=== PATIENT | male | born 1985 | race Two or more races ===

== ENCOUNTER 2024-11-02 15:30 | Outpatient (RCR) | payer BC, SELFPAY ==
--- NOTE | 2024-10-09 15:15 | PT.OIERPT ---
PT OP Initial Eval Patient Information Outpatient Physical Therapy Treatment Date: 10/09/24 Visit Reasons: back pain Medical Diagnosis: M54.50 Treatment Dx #1: Back Pain Smoking Status Smoking Status: Current some day smoker (yes) Cessation Counseling Provided: TIKA was advised that quitting smoking is the single most important factor to protect the health of themselves and their family. Discussed the benefits of quitting smoking with patient. Encouraged patient to quit smoking and provided Cessation assistance materials and resources. Tobacco Use: Cigarette Years smoked: 10 Are you interested in quitting?: No Would you like additional Smoking Cessation Counseling?: No Initial Assessment Subjective: Pt is a 39 y/o male reports of chronic back pain ~ 1.5 years ago after lifting injury. Pt's most recent CT scan found 7 mm L4-S1 segments. No MRI has been done thus far. Pt has limitation with sleeping, sitting, standing, chores, self care, cooking, cleaning, and work duties. Objective: L/S AROM: all motions are WFL with pain into end range flexion and extension Hip PROM: all motions are WFL except IR bilaterally Muscle Length: Hs tightness Special Test (-) SLR (-) slumpt test Assessment: Pt demonstrate back pain with mobility deficits leading to difficulty with ADLs. Pt will attempt physical therapy if pain persist Pt will be refer back to provider for further consultation. Short Term and Nursing Home Goals 1) Increase L/S AROM WNL in 6 wks to be able to perform chores 2) Decrease back pain to 2/10 in 6 wks to be able to sit and stand more than 30 mins 3) Increase core strength WFL in 6 wks to be able to perform work duties 4) Increase hip MMTs grossly 4-/5 in 6 wks to be able to walk more than 30 mins 5) Indep with HEP Treatment Plan 1) Manual Therapy 2) Therapeutic Activities 3) Therapeutic Exercises 4) Modalities (ice, heat, traction) Frequency and Duration: 2 x wk for 6 wks Certification Dates: 10/09/24 to 01/09/25 Procedure Charges OP PT Eval Mod Complex 30 minutes: Yes
--- NOTE | 2024-10-16 15:32 | PT.ODAYNRPT ---
PT Outpatient Daily Note OP Daily Note Outpatient Physical Therapy Treatment Date: 10/16/24 Visit Reasons: back pain Subjective: Pt's back is okay. No pain down the leg today Objective: Please see flow chart for list of ther ex performed Assessment: hip fatigue with tick tock exercise require standing rest breaks. Plan: Continue with PT Length of Time (minutes) of Treatment: 30 Minutes Procedure Charges Therapeutic Exercise 30 minutes: Yes
--- NOTE | 2024-10-19 16:47 | PT.ODAYNRPT ---
PT Outpatient Daily Note OP Daily Note Outpatient Physical Therapy Treatment Date: 10/19/24 Visit Reasons: back pain Subjective: Pt reported muscle soreness post last PT visit. Objective: Please see flow sheet for ther ex list. Assessment: Pt able to replicate repeated lumbar extension with good technique, encouraged to continue for HEP. Plan: Continue with POC. Length of Time (minutes) of Treatment: 30 Minutes Procedure Charges Therapeutic Exercise 30 minutes: Yes
--- NOTE | 2024-10-22 16:11 | PT.ODAYNRPT ---
PT Outpatient Daily Note OP Daily Note Outpatient Physical Therapy Treatment Date: 10/22/24 Visit Reasons: back pain Subjective: Pt reports LBP has been worse lately, tried HEP exercises once but made his back sore. Objective: Please see flow sheet for ther ex list. Assessment: Pt demonstrates poor activity tolerance due to pain response. Plan: Continue with POc. Length of Time (minutes) of Treatment: 30 Minutes Procedure Charges Therapeutic Exercise 30 minutes: Yes
--- NOTE | 2024-11-02 15:57 | PT.ODAYNRPT ---
PT Outpatient Daily Note OP Daily Note Outpatient Physical Therapy Treatment Date: 11/02/24 Visit Reasons: back pain Subjective: Pt's back is about the same and continues to have pain down the leg. Pt mentioned after sitting for awhile her back is really stiff. Objective: Please see flow chart for list of ther ex performed Assessment: no change in overall symptoms post PT session. Progress most of patient exercises to sitting or standing with good tolerance Plan: Continue with PT Length of Time (minutes) of Treatment: 30 Minutes Procedure Charges Therapeutic Exercise 30 minutes: Yes
== END 2024-11-02 23:59 | disposition home or self-care (01) ==
LOC: CPTX 15:30
DX: M54.50 Low back pain, unspecified (principal); G89.29 Other chronic pain; Z71.6 Tobacco abuse counseling; F17.210 Nicotine dependence, cigarettes, uncomplicated
CPT/HCPCS: 97110; 97162

== ENCOUNTER 2024-11-17 15:00 | Outpatient (RCR) | payer BC, SELFPAY ==
--- NOTE | 2024-11-10 15:27 | PT.ODAYNRPT ---
PT Outpatient Daily Note OP Daily Note Outpatient Physical Therapy Treatment Date: 11/10/24 Visit Reasons: BACK PAIN Subjective: Pt's back pain is about the same. Despite Pt's been resting from work for ~ 3 weeks; he continues to have pain. Pt mentioned pain pills are not even touching the pain. Objective: Please see flow chart for list of ther ex performed Assessment: no change in pain post PT session. Cues given to patient to pelvic tilt to achieve proper hip hinge against the wall Plan: Continue with PT Length of Time (minutes) of Treatment: 30 Minutes Procedure Charges Therapeutic Exercise 30 minutes: Yes
--- NOTE | 2024-11-17 15:17 | PT.ODS1RPT ---
PT OP Progress/Discharge Note Date of Service: 11/17/24 Progress Note/DC Note Progress Note/Discharge Note: DC Note Patient Information Visit Reasons: BACK PAIN Medical Diagnosis: M54.50 Treatment Dx #1: Back Pain Service Continue Service or Discharge: Discharge Discharge Date: 11/17/24 Status Subjective: Pt's back is about the same and continues to have pain down the legs. Pt still has limitation with prolonged sitting, standing, chores, self care, and performing recreational activities. Pt will stop physical therapy and follow up with PCP in a few weeks. Objective: L/S AROM: all motions are WFL with pain Hip PROM: all motions are WNL Hip MMTs: grossly 4-/5 Assessment: Pt demonstrate functional spinal mobility and strength, however, no change in pain leading to difficulty with ADLs. Pt will no longer benefit from physical therapy due to plateau towards goals. Recommend L/S MRI to farther determine severity of disc bulge. Pt was instructed on HEP last session and educated to continue exercises to maintain overall mobility. Pt performed all exercises safely, thank you for your referrals. Plan: D/C home with HEP and follow up with PCP Recommend L/S MRI Procedure Charges Therapeutic Exercise 15 minutes: Yes Self Care/Home Mgmt 15 minutes: Yes
== END 2024-12-02 23:59 | disposition home or self-care (01) ==
LOC: CPTX 15:00
DX: M54.50 Low back pain, unspecified (principal); G89.29 Other chronic pain
CPT/HCPCS: 97110; 97535

== ENCOUNTER → 2025-01-22 | Outpatient (CLI) | payer BC, SELFPAY ==
--- NOTE | 2025-01-22 08:00 | XR_ITS ---
Examination: MRI lumbar spine without contrast Date and time of exam: January 22, 2025 0831 hours INDICATIONS: Low back pain radiating down both legs beginning one year ago Technique: Multiple MRI axial and sagittal sections lumbar spine. Sagittal T2-weighted images, TR 3500, TE 118 T1 weighted transverse sections, TR 688 T8.5, T2-weighted sagittal sections T1 weighted sagittal sections TR 621, TE 30 T2 axial sections, TR 4, 190, TE 84. Findings: Adequate alignment lumbar vertebral bodies No lumbar fracture Mild to moderate disc narrowing L4-L5, L5-S1 No spondylolisthesis L5-S1 9 mm partially extruded central left paracentral disc displacing the left S1 nerve root and producing mild left L5 ganglionic compression L4-L5 6 mm central lumbar disc bulge contiguous with the right and left L5 nerve roots More cephalad levels unremarkable IMPRESSION: L5-S1 9 mm extruded central left paracentral disc displacing the left S1 nerve root and producing mild left L5 ganglionic compression L4-L5 6 mm central lumbar disc bulge contiguous with the right and left L5 nerve roots
== END | disposition home or self-care (01) ==
LOC: SMRI 07:38
DX: M51.27 Other intervertebral disc displacement, lumbosacral region (principal); M51.360 Other intervertebral disc degeneration, lumbar region with discogenic back pain only; G95.20 Unspecified cord compression
CPT/HCPCS: 72148

== ENCOUNTER 2025-06-26 12:20 | Emergency (ER) | payer BC, SELFPAY ==
[2025-06-26 12:31] VITALS: BP 135/84; PULSE 58; RESP 17; TEMP 36.7; O2SAT 96; BMI 31.8
[2025-06-26] MEDS: KETOROLAC INJ 30 MG/ML VIAL IM (13:07)
[2025-06-26] MEDS: DEXAMETHASONE SOD PHOS INJ 10 MG/ML VIAL IM (13:07)
--- NOTE | 2025-06-26 13:30 | EDNOTE_ITS ---
ED Back Injury Pain RME/HPI General Chief Complaint: Back Pain/Injury Stated Complaint: Lower back pain since yesterday Time Seen by Provider: 06/26/25 12:22 Arrival date/time: 06/26/25 12:20 39-year-old male presents to the Emergency Department of complaint of back pain patient reports pain is acute on chronic started months ago patient was no saddle anesthesia no loss of bowel or bladder Limitations: no limitations Related Data Previous Rx's ?Medication ?Instructions ?Recorded hydrocodone 5 mg-acetaminophen 325 1 tab PO BID PRN pa in #10 tabs 06/26/23 mg tablet ibuprofen 800 mg tablet 800 mg PO TID PRN pain #30 t abs 06/26/23 hydrocodone 5 mg-acetaminophen 325 1 tab PO BID PRN pa in #10 tabs 06/26/25 mg tablet Allergies Allergy/AdvReac Type Severity Reaction Status Date / Time Penicillins Allergy Mild SWELLING Verified 06/26/25 12:24 Review of Systems Review of Systems Systems Reviewed: All systems reviewed, normal except as documented Constitutional Constitutional: Reports system reviewed and no additional complaints, except as documented, Denies fever(s) and Denies headache(s) Eyes Eyes: Reports system reviewed and no additional complaints, except as documented and Denies blurry vision ENT Ears, Nose, Mouth, and Throat: Reports system reviewed and no additional complaints, except as documented, Denies headache(s), Denies nasal congestion and Denies nasal discharge Cardiovascular Cardiovascular: Reports system reviewed and no additional complaints, except as documented, Denies chest pain and Denies dyspnea Respiratory Respiratory: Reports system reviewed and no additional complaints, except as documented, Denies chest congestion, Denies cough and Denies dyspnea Gastrointestinal Gastrointestinal: Reports system reviewed and no additional complaints, except as documented and Denies abdominal pain Musculoskeletal Musculoskeletal: Reports system reviewed and no additional complaints, except as documented and Reports back pain Integumentary/Breasts Skin/Breast: Reports system reviewed and no additional complaints, except as documented and Denies rash Neurologic Neurologic: Reports system reviewed and no additional complaints, except as documented, Reports as per HPI and Denies headache(s) Past Medical History Past Medical History CARDIAC: Negative Congestive Heart Failure RESPIRATORY: Negative Chronic Obstructive Pulmonary Disease (COPD) GENITOURINARY: Negative Renal Disease ENDOCRINE: Negative Diabetes Mellitus Type 1 or Diabetes Mellitus Type 2 Social History SMOKING STATUS: Current every day smoker ED Exam General Limitations: Present no limitations General appearance: Present alert and in no apparent distress Head Head exam: Present atraumatic Eye Eye exam: Present normal appearance, PERRL and EOMI ENT ENT exam: Present normal exam, normal oropharynx and mucous membranes moist Neck Neck exam: Present normal inspection, full ROM and trachea midline Chest Chest inspection: Present normal inspection and symmetric chest wall rise Respiratory Respiratory exam: Present normal lung sounds bilaterally Cardiovascular Cardiovascular exam: Present regular rate, normal rhythm and normal heart sounds Abdominal Exam Abdominal exam: Present soft and normal bowel sounds; Absent distention, tenderness, guarding, rebound or rigidity Extremities Exam Extremities exam: Present normal inspection and full ROM Back Exam Back exam: Present normal inspection and full ROM Neurological Exam Neurological exam: Present alert, oriented X3 and CN II-XII intact Psychiatric Psychiatric exam: Present normal affect and normal mood Skin Skin exam: Present warm, dry, intact and normal color Course Quality Measures none Orders Category Date Time Status Dexamethasone Inj [Decadron Inj] Med 06/26/25 12:41 Discontinued 10 mg IM X1 ONE Ketorolac Inj [Toradol Inj] Med 06/26/25 12:41 Discontinued 30 mg IM X1 ONE Vital Signs Vital signs: Vital Signs Temperature 98.1 F 06/26/25 12:31 Pulse Rate 58 L 06/26/25 12:31 Respiratory Rate 17 06/26/25 12:31 Blood Pressure 135/84 H 06/26/25 12:31 Pulse Oximetry (%) 96 06/26/25 12:31 Oxygen Delivery Method Room Air 06/26/25 12:31 O2 saturation 96% on room air with normal limits Back Pain / Injury MDM Narrative MDM Narrative:: 39-year-old male presents to the Emergency Department of complaint of back pain patient reports pain is acute on chronic started months ago patient was no saddle anesthesia no loss of bowel or bladder On exam patient well-appearing does not appear ill or toxic no acute distress I reviewed patient's previous MRI patient has chronic changes Patient does not have any acute saddle esthesia no loss of bowel or bladder therefore patient be discharged home with course of pain medication Patient medicated here with pain medication and steroids Patient discharged home in no distress to follow-up with primary care doctor in the next 24 to 48 hours and for any worsening symptoms to return to the ER immediately Patient data External records reviewed:: [facility] previous records Clinical information provided by:: patient Social determinants that could affect healthcare access:: none Patient has the following chronic illnesses:: See history How is presenting disease/condition affected by chronic disease/condition?: caused by Evaluation data The following diagnostics were reviewed and interpreted by me:: other (specify) Lab and/or radiology exams considered but not ordered:: Considered not indicated Interpretation Summary: N/A Medications / Prescriptions Medications or Prescriptions considered but not ordered:: Given Medication administrations:: Medication Administration History Discontinued Medications Dexamethasone Sodium Phosphate (Dexamethasone Sod Phos Inj 10 Mg/Ml Vial) 10 mg IM X1 ONE Stop: 06/26/25 12:42 Last Admin: 06/26/25 13:07 Dose: 10 mg Documented By: RAFAEL Ketorolac Tromethamine (Ketorolac Inj 30 Mg/Ml Vial) 30 mg IM X1 ONE Stop: 06/26/25 12:42 Last Admin: 06/26/25 13:07 Dose: 30 mg Documented By: RAFAEL Given Consultations Consultation(s) initiated? (list below): No Diagnosis Differential diagnosis back pain/injury: lumbar radiculopathy, sciatica and strain of lumbar region Most likely diagnosis given after review of the tests above:: Back pain Admission Indicated Admission indicated?: not indicated Admission Request Was there a request for admission?: No Disposition Plan Disposition Plan: Discharge Discharge Attestation Discharge Attestation: The patient and all family members were given an opportunity to ask questions and understood the discharge instructions. Discharge instructions specifically effects, indications for sooner follow up or return to the emergency department, and the expected course of current diagnosis. Patient condition: Stable Discharge Plan Plan Patient Disposition: HOME (Self Care) Discharge Disposition comment: Stable Prescriptions/Referrals Prescriptions/Med Rec: New hydrocodone-acetaminophen 5-325 mg tablet 1 tab PO BID MDD 10 PRN (Reason: pain) Qty: 10 0RF No Action ibuprofen 800 mg tablet 800 mg PO TID PRN (Reason: pain) Qty: 30 0RF hydrocodone-acetaminophen 5-325 mg tablet 1 tab PO BID MDD 10 PRN (Reason: pain) Qty: 10 0RF Problem List Clinical Impression: Acute on chronic back pain Patient/Caregiver Discharge Instructions Education Materials: Back Safety Bed Additional Instructions: Please follow up with your primary care doctor in the next 24-48hrs for any worsening symptoms return here immediately Print Language: Burkinan Stand Alone Forms: [employer] Award Info., Patient Portal Info Letter 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 White
== END 2025-06-26 13:17 | disposition home or self-care (01) ==
LOC: SERX 13:17
PROVIDERS: Emergency Provider Nurse Practitioner Primary Care
DX: M54.50 Low back pain, unspecified (principal); G89.29 Other chronic pain
CPT/HCPCS: 96372; 99282; J1100; J1885